=== PATIENT | male | born 1940 | race Two or more races ===

== ENCOUNTER → 2016-08-10 | Day surgery (SDC) | payer MEDICARE, OTHER ==
--- NOTE | 2016-08-09 10:44 | Pre-Procedure Note/Attestation ---
Pre-Procedure Note/Attestation Complete Prior to Procedure Planned Procedure: right Procedure Narrative: 1. CATARACT EXTRACTION WITH PHACO AND PC IOL IMPLANTATION, RIGHT EYE. 2.MALYUGIN RING INSERTION, RIGHT EYE FOR FLOPPY IRIS SYNDROME. 3.COMPLEX CATARACT , RIGHT EYE Indications for Procedure Pre-Operative Diagnosis: 1. CATARACT ,RIGHT EYE. 2. FLOPPY IRIS SYNDROME,RIGHT EYE 3. COMPLEX CATARACT , RIGHT EYE. Attestation I attest that I discussed the nature of the procedure; its benefits; risks and complications; and alternatives (and the risks and benefits of such alternatives ), prior to the procedure, with the patient (or the patient's legal dermatology sales representative). I attest that, if there was a reasonable possibility of needing a blood transfusion, the patient (or the patient's legal dermatology sales representative) was given the [facility] standardized written summary, pursuant to the Rol[place] Blood Safety Act ([place] Health and Safety Code # 1645, as amended). I attest that I re-evaluated the patient just prior to the surgery and that there has been no change in the patient's H&P, except as documented below: SHAHRZAD MORA Aug 09, 2016 10:44
[2016-08-10] VITALS (8 sets, daily range): BP systolic 146–167; BP diastolic 52–76
[~2016-08-10] VITALS: Ht 177.8 cm; Wt 62.6 kg
[~2016-08-10] MED LIST: ALLOPURINOL100 M1 ORAL; ASPIR 8181 MG ORAL; Akten 3.5% 1ml Btl ONE; Albuterol ud Inhalation HHN ONE; Albuterol ud Inhalation ONE; BRILINTA90 MG PO; BSS 15ml BTL ONE; BSS 500ml btl ONE; CALCITRIOL1 MCG/1 ML IV; CALCIUM CITRAT1 EA16 PO; CARVEDILOL6.25 MG ORAL; CYMBALTA20 MG ORAL; Dexamethasone 4mg/ml vial ONE; Diclofenac Sod 0.1% Op Soln ONE; EPINEPHrine 1mg/1ml Amp ONE; FLOMAX0.4 MG ORAL; FOLIC ACID1 MG ORAL; GABAPENTIN300 MG ORAL; GEMFIBROZIL PO; Gatifloxacin Opth Solution 0.5% ONE; INSULIN 70/30 SUBQ; ISOSORBIDE MONO20 MG PO; LEVOXYL75 MCG ORAL; LOSARTAN POTASS25 MG ORAL; Lidocaine 1% MPF 10mg/ml 5ml ONE; METOPROLOL SUCC50 MG ORAL; MONTELUKAST SOD10 MG ORAL; Midazolam 2mg/2ml Inj ONE; NEPHROVITE1 TAB ORAL; NITROGLYCERIN0.4 MG SL; NS Irrig 1000ml ONE; PENTOXIFYLLINE400 MG ORAL; PLAVIX75 MG ORAL; PROSCAR5 MG ORAL; Phenylephrine 10% Opth Soln 5ml ONE; Povidone-Iodine 5% opth solution ONE; Sodium Hyaluronate 10 mg/ml 0.85ml ONE; Sterile Water Irrig 1000ml IRRIG ONE; TAMSULOSIN HCL0.4 MG ORAL; THIAMINE HCL100 MG ORAL; Tropicamide 1% Opth Soln ONE; VITAMIN D3 1,01 EACH PO; ZETIA10 MG ORAL; [UNRECOGNIZED DRUG - OTHER]; [UNRECOGNIZED DRUG - OTHER] PO; acetaZOLAMIDE 125mg tab ORAL ONE; fentaNYL 100 mcg/2 mL IV ONE; fentaNYL 100 mcg/2 mL IV PRN
[2016-08-10] MEDS: Gatifloxacin Opth Solution 0.5% RIGHT EYE SCH ×3 (09:11→09:37)
[2016-08-10] MEDS: Tropicamide 1% Opth Soln RIGHT EYE SCH ×3 (09:11→09:37)
[2016-08-10] MEDS: Phenylephrine 10% Opth Soln 5ml RIGHT EYE SCH ×3 (09:12→09:37)
[2016-08-10] MEDS: Diclofenac Sod 0.1% Op Soln RIGHT EYE SCH ×3 (09:12→09:37)
[2016-08-10] MEDS: Akten 3.5% 1ml Btl RIGHT EYE SCH ×3 (09:12→09:37)
[2016-08-10 09:45] LABS: BASOPHILS % (AUTO) 0.7 % (0.0-2.0); LYMPHOCYTES % (AUTO) 10.6 % (20.0-45.0); MEAN CORPUSCULAR HEMOGLOBIN 29.4 PG (27.0-31.0); MEAN CORPUSCULAR HGB CONC 31.6 G/DL (32.0-36.0); MEAN CORPUSCULAR VOLUME 93 FL (80-99); MEAN PLATELET VOLUME 7.6 FL (6.5-10.1); MONOCYTES % (AUTO) 10.2 % (1.0-10.0); NEUTROPHILS % (AUTO) 74.5 % (45.0-75.0); PLATELET COUNT 453 K/UL (150-450); RED BLOOD COUNT 4.52 M/UL (4.70-6.10); RED CELL DISTRIBUTION WIDTH 15.8 % (11.6-14.8); WHITE BLOOD COUNT 12.7 K/UL (4.8-10.8)
[2016-08-10 09:56] LABS: ANION GAP 14 (5-15); CALCIUM 9.9 mg/dL (8.6-10.2); CARBON DIOXIDE 28 mEQ/L (20-30); CHLORIDE 98 mEQ/L (98-107); CREATININE 2.6 mg/dL (0.7-1.2); HEMOLYSIS 5; POTASSIUM 4.3 mEQ/L (3.4-4.9); SODIUM 140 mEQ/L (135-145)
--- NOTE | 2016-08-10 10:17 | Anethesia Preoperative Eval ---
Anesthesia Pre-op PMH/ROS General Date of Evaluation: Aug 10, 2016 Time of Evaluation: 09:40 Anesthesiologist: Manjinder ASA Score: ASA 3 Mallampati Score Class I : Soft palate, uvula, fauces, pillars visible Class II: Soft palate, uvula, fauces visible Class III: Soft palate, base of uvula visible Class IV: Only hard plate visible Mallampati Classification: Class II Surgeon: Everardo Diagnosis: R eye cataract Surgical Procedure: R eye cataract extraction with IOL Anesthesia History: none Social History: smoking - h/o Family History: no anesthesia problems Allergies: Coded Allergies: No Known Allergies (Unverified , 05/15/14) Medications: see eMAR Past Medical History Cardiovascular: Reports: CAD - stents in place, HTN Pulmonary: Reports: COPD, Denies: JUN, asthma, other Gastrointestinal/Genitourinary: Reports: ESRD - on HD last session 08/09, GERD, Denies: CRI, other Neurologic/Psychiatric: Reports: depression/anxiety, Denies: CVA, TIA, dementia, other Endocrine: Reports: DM - on insulin, Denies: hypothyroidism, other, steroids HEENT: Reports: cataract (L), cataract (R) Hematology/Immune: Reports: anemia, Denies: DVT, bleeding disorder, other Musculoskeletal/Integumentary: Reports: DJD, Denies: DDD, OA, RA, edema, other Other: other PMH Narrative: as above PSxH Narrative: R eye cataract Dialysis catheter placement Anesthesia Pre-op Phys. Exam Physician Exam Last Vital Signs Date Time Temp Pulse Resp B/P Pulse Ox O2 Delivery O2 Flow Rate FiO2 08/10/16 09:20 97.9 69 18 157/69 94 Room Air Constitutional: NAD Neurologic: CN 2-12 intact Cardiovascular: RRR Respiratory: other - some wheezing and rhonkie bilaterally Gastrointestinal: S/NT/ND Airway Exam Mallampati Score: Class II MO: limited Neck: stiff ROM: limited Teeth: missing Dentures: no lower, no upper Anesthesia Pre-op A/P Labs Hematology Test 08/10/16 09:20 White Blood Count 12.7 K/UL (4.8-10.8) H Red Blood Count 4.52 M/UL (4.70-6.10) L Hemoglobin 13.3 G/DL (14.2-18.0) L Hematocrit 42.1 % (42.0-52.0) Mean Corpuscular Volume 93 FL (80-99) Mean Corpuscular Hemoglobin 29.4 PG (27.0-31.0) Mean Corpuscular Hemoglobin Concent 31.6 G/DL (32.0-36.0) L Red Cell Distribution Width 15.8 % (11.6-14.8) H Platelet Count 453 K/UL (150-450) H Mean Platelet Volume 7.6 FL (6.5-10.1) Neutrophils (%) (Auto) 74.5 % (45.0-75.0) Lymphocytes (%) (Auto) 10.6 % (20.0-45.0) L Monocytes (%) (Auto) 10.2 % (1.0-10.0) H Eosinophils (%) (Auto) 4.0 % (0.0-3.0) H Basophils (%) (Auto) 0.7 % (0.0-2.0) Chemistry Test 08/10/16 09:20 Sodium Level 140 mEQ/L (135-145) Potassium Level 4.3 mEQ/L (3.4-4.9) Chloride Level 98 mEQ/L (98-107) Carbon Dioxide Level 28 mEQ/L (20-30) Anion Gap 14 (5-15) Blood Urea Nitrogen 40 mg/dL (7-23) H Creatinine 2.6 mg/dL (0.7-1.2) H Estimat Glomerular Filtration Rate mL/min (>60) Glucose Level 174 mg/dL (74-106) H Calcium Level 9.9 mg/dL (8.6-10.2) Accucheck 149 at admission Studies Pre-op Studies: EKG - Atrial flater Risk Assessment & Plan Assessment: ASA 3 Plan: MAC Status Change Before Surgery: No Pre-Antibiotics Drug: none BEAR VITAL M.D. Aug 10, 2016 10:17
--- NOTE | 2016-08-10 10:34 | Brief Operative Note ---
Immediate Post Operative Note Operative Note Chief Complaint: Blurry vision,right eye. Difficulty driving and reading Pre-op Diagnosis: 1. CATARACT ,RIGHT EYE. 2. FLOPPY IRIS SYNDROME,RIGHT EYE 3. COMPLEX CATARACT , RIGHT EYE. Procedure: 1- Cataract extraction with phaco and PC IOL implantation, right eye 2- Insertion Malyugin ring for the Floppy iris syndrome 3- Complex cataract extraction, right eye Post-op Diagnosis: same as pre-op Surgeon: Shahrzad Mcgee MD. Home Appliances Mechanic: None Additional Surgeons: NOne Anesthesiologist: Dr. Dunbar Anesthesia: MAC Specimen: none Complications: none Condition: stable Estimated Blood Loss: none Drains: none Implant(s) used?: Yes - Monofocal PC IOL implanted in the right eye SHAHRZAD MCGEE Aug 10, 2016 10:34
--- NOTE | 2016-08-10 10:35 | Immediate Post-Op Evaluation ---
Immediate Post-Op Evalulation Immediate Post-Op Evalulation Procedure: R eye cataract extraction with IOL Date of Evaluation: Aug 10, 2016 Time of Evaluation: 10:33 IV Fluids: 150 Blood Products: none Estimated Blood Loss: none Urinary Output: none Blood Pressure Systolic: 158 Blood Pressure Diastolic: 72 Pulse Rate: 74 Respiratory Rate: 28 O2 Sat by Pulse Oximetry: 96 Temperature (Fahrenheit): 97.4 Pain Score (1-10): 1 Nausea: No Vomiting: No Complications none Patient Status: awake, patent, none Hydration Status: adequate BEAR VITAL M.D. Aug 10, 2016 10:35
--- NOTE | 2016-08-10 11:20 | Discharge Summary ---
Discharge Summary Discharge Summary Discharge Summary DATE OF ADMISSION: 08/10/2016 DATE OF DISCHARGE: 08/10/2016 REASON FOR HOSPITALIZATION: 1- Cataract, right eye 2- Floppy iris syndrome, right eye 3- Complex cataract, right eye SURGERY PERFORMED: 1- Cataract extraction with phaco and PC IOl implantation, right eye 2-Malyugin ring insertio for the treatment of floppy iris syndrom 3- Complex cataract removal, right eye. CONDITION IN THE HOSPITAL:The patient tolerated the surgery without complications. DISCHARGE CONDITION: The patient was stable at discharge. DISCHARGE MEDICATIONS: 1. Vigamox eye drops one drop q.i.d, 2. Prednisolone one drop q.i.d, 3. Ilevro eye drop, one drop q.i.d. right eye POSTOPERATIVE ORDERS: The patient has to rest at home. No bending, No lifting, No watching Television tonight. POSTOPERATIVE FOLLOW UP: The patient will be followed in my office tomorrow morning at 9.0 o'clock. SHAHRZAD MORA Aug 10, 2016 11:20
--- NOTE | 2016-08-10 11:42 | Operative Note - PDOC ---
Operative Note Operative Note Operative Report DATE OF OPERATION: 08/10/2016 FACILITY: [facility] SURGEON: Selwny Mcgee MD. ELECTRICAL APPLIANCE SERVICER: None ANESTHESIOLOGIST: Dr. Dunbar ANESTHESIA: Monitored anesthesia care (MAC) PREOPERATIVE DIAGNOSES: 1. Cataract, right eye 2. Floppy iris, right eye. 3. Complex cataract removal, right eye POSTOPERATIVE DIAGNOSES: 1. Cataract, right eye. 2- Floppy iris syndrome. 3- Complex cataract, right eye. SURGERY PERFORMED: 1. Cataract extraction with phacoemulsification and posterior chamber intraocular lens implantation in the right eye. 2. Malyugin ring insertion for the treatment floppy iris syndrome 3. Complex cataract removal, right eye. INDICATION FOR SURGERY: The patient is an 76- year-old gentleman with history of high blood pressure, dibetes mellitus, renal insufficiency on dialysis, peripheral neuropathy,COPD,Bph , depressionanemia and arthritis. he is takingallopurinol, amlodipin,carvidelol, asa, isosorbideand insulin. He has some back pain and osteoarthritis as well. He is taking Flomax for BPH. The patient has coronary artery disease. He underwent coronary angiography with stent in his coronary artery. He does'nt smoke does'nt drink and no allergy to medications. He is complaining of blurry vision in the right eye. There is 4 nuclear sclerosis and 2 cortical cataract. The fundus shows normal optic disc, normal macula, and periphery retina is flat. To improve his vision int he left eye, the cataract has to be removed and posterior chamber intraocular lens has to be implanted. INFORMED CONSENT: The nature of the surgery, risks benefits, alternatives, and potential complications were explained all in detail to the patient. The potential complications including. But not limited to bleeding, infection, posterior capsular rupture,lens subluxation, flat anterior chamber,iris prolapse , uveitis, corneal edema, macular edema, endophthalmitis, retinal detachment, loss of vision and even loss of the eye were all explained in detail to the patient. The patient voiced understanding and accepted all the complications.The alternatives including accommodating lens, multifocal lens, toric lens, and conventional cataract surgery with limbal relaxing incision (LRI ) for treatment of astigmatism were all explained in detail to the patient who voiced understanding. The patient elected to have cataract surgery with insertion of the multifocal lens and limbal relaxing incision for astigmatism. Then, he signed the consent from,which is in the chart. DESCRIPTION OF SURGERY AND FINDINGS: Following hat, the patient was taken to the operation room in a stable condition. Lidocaine gel Akten 3.5% were applied to the conjunctiva of the right eye. Anesthesia was given by the anesthesiologist, Dr. Dunbar. After adequate anesthesia and sedation had been achieved, the right eye was prepped and draped in the usual and sterile fashion for intraocular surgery.Following that, a speculum was placed in the right eye. Following that, before the patient was taken to the operation room, the 180 and 90 meridian of the cornea was marked. In the operation room, using a corneal marker and marking pen, the steep meridian of the cornea was marked. Following that, using a roxie knife, two parallel incisions was placed on the steep meridian of the cornea to treat the patients astigmatism. Following that, using a super sharp knife, a clear corneal side port was created. Following that 1% lidocaine without preservative (MPF) was injected into the anterior chamber.Viscoelastic agent Healon was injected into the anterior chamber. Following that, a clear corneal temporal keratotomy was performed with a 2.8 mm keratome. Following that, viscoelastic agent was injected into the anterior chamber again. Following that a Malyugin ring was inserted in to the anterior chamber and fixed to the pupil. A roxie shape space created for safe phacoemolcification., Vision blue was injected under the viscoelastic agent to stain the anterior capsule. Following that, a clear fresh viscoelastic agent was injected into the anterior chamber again. Under the viscoelastic agent, an anterior capsulotomy was performed in the fashion of capsulorrhexis beautifully. Following that viscoelastic agent was removed from the anterior chamber. Following that, using a balanced salt solution hydrodissection and hydrodelineation was performed and the nucleus was freed. Following that, the viscoelastic agent was injected into the anterior chamber again to protect the endothelium of the cornea. Following that, using phacoemulsification machine inthe fashion of horizontal chop, the nucleus was removed in toto. Following that, the cortical material was removed from the capsular bag with irrigation aspiration unit and the capsular bag was polished.Following that, the capsular bag was filled with viscoelastic agent. Following that, a+22.50 diopter , ZCB00 foldable PCIOL with serial number [id number] was injected into the capsular bag. Using a Sinskey hook, the lens was manipulated within the proper position.Following that the Malyugin ring was removed, viscoelastic agent was removed from the anterior and posterior part of the lens.The anterior chamber was filled with balanced salt solution. Following that, the wound was hydrated with balanced salt solution and the wound was checked for leakage. There was no leakage. Following that, the wound was hydrated and the wound was checked for leakage. There was no leakage. Following that, Vigamox eye drops were applied to the conjunctiva of the left eye. The patient tolerated the surgery without complications. At the end of the surgery, the eye was patched with a clear sterile fenestrated shield. Following that, the patient was transferred to the recovery room. In the recovery room, 125mg Diamox was given by mouth stat. Postoperative orders and directions were given to the patient. The patient will be discharged home upon stabilization. The patient will be followed in my office tomorrow morning at 9.0 o'clock. MD MORGAN Quach JOHN Aug 10, 2016 11:42
[2016-08-11 08:04] VITALS: BP 148/74
--- NOTE | 2016-08-11 08:04 | 48 Hour Post Anesthesia Eval ---
Post Anesthesia Evaluation Procedure: R eye cataract extraction with IOL Date of Evaluation: Aug 10, 2016 Time of Evaluation: 11:40 Blood Pressure Systolic: 148 0: 74 Pulse Rate: 64 Respiratory Rate: 24 Temperature (Fahrenheit): 97.6 O2 Sat by Pulse Oximetry: 96 Airway: patent Nausea: No Vomiting: No Pain Intensity: 1 Hydration Status: adequate Cardiopulmonary Status: stable Mental Status/LOC: patient returned to baseline Follow-up Care/Observations: n/a Post-Anesthesia Complications: none Follow-up care needed: ready to discharge BEAR VITAL M.D. Aug 11, 2016 08:04
--- NOTE | 2016-08-11 15:37 | Pre-op HX & Phy Repo 2 SIG ---
DATE OF ADMISSION: 08/10/2016 PRESURGICAL INTERNAL MEDICINE HISTORY AND PHYSICAL DATE OF EVALUATION: 08/10/2016 REASON FOR EVALUATION: I was asked by Dr. Selwyn Mcgee to see this 75-year-old male who was brought in for elective surgery on the right eye. The patient has a cataract right eye. Please see full History and Physical by hospice clinical marketer, Dr. Selwyn Mcgee. The patient was evaluated. Chart was reviewed. The patient is complaining of progressive vision loss of the right eye due to cataract. The patient's past medical history and review of systems obtained from the chart, at the bedside and Dr. Mcgee. The patient is a Farsi-speaking male, in no acute distress. PAST MEDICAL HISTORY: Remarkable for insulin-dependent diabetes mellitus, end-stage renal disease. The patient is on hemodialysis, last done 08/09/2016. The patient has a history of hypertension, benign prostatic hypertrophy and coronary artery disease. No history of heart attack or stroke. The patient has hypoparathyroidism secondary to renal insufficiency. The patient has a hypothyroidism. PAST SURGICAL HISTORY: Cataract, left eye one year ago and chest subclavian IV access for dialysis on the right side. MEDICATIONS: Current medications include Humalog 70/30, 10 units in the morning and 5 units at bedtime, allopurinol 100 mg daily, levothyroxine, baby aspirin, calcitonin, calcium supplement, Coreg 6.25 mg three times a day, Synthroid, gabapentin, Brilinta 90 mg needed be , vitamin B complex, isosorbide 20 mg daily, Flomax, and Proscar. ALLERGIES: Not known. FAMILY HISTORY: Not known. PHYSICAL EXAMINATION: GENERAL: The patient is awake, alert, Farsi speaking male in no acute distress. VITAL SIGNS: Blood pressure 157/65, temperature 97.9 degrees, pulse 69 and regular, and O2 saturation 99%. SKIN: Pale, dry, and clear. LYMPHATICS: Lymph nodes not enlarged. HEENT: Head, normocephalic. Ears, clear. Eyes, full description per Dr. Selwyn Mcgee. Mouth, clear and moist. Nose, clear. No discharge. NECK: No jugular vein distention. Carotids are 2+. Trachea midline. CHEST: Right upper access for dialysis. The patient dialyzed yesterday, 08/09/2016. LUNGS: Clear. No rales or rhonchi. HEART: Sinus rhythm. Atrial flutter. AV block on the EKG. ABDOMEN: Soft. No palpable mass. No rebound. EXTREMITIES: No edema. No calf tenderness. No deformity. GENITOURINARY TRACT: Normal for gender. No dysuria and anuria. History of benign prostatic hypertrophy. LABORATORY AND DIAGNOSTIC DATA: Electrocardiogram, atrial flutter, AV block,__ MS, old, rate 69. Laboratory findings, blood sugar of 149. White blood cells 12.7, and hemoglobin 13.3. Chemistries, sodium 140, potassium 4.3, BUN 40, creatinine 2.6, blood sugar 174, and calcium 9.9. IMPRESSION: 1. Cataract, right eye. 2. Insulin-dependent diabetes mellitus. 3. End-stage renal disease, on dialysis, last 08/09/2016. 4. Hypertension. 5. Hypothyroidism. 6. Hypoparathyroidism. 7. Benign prostatic hypertrophy. 8. Atrial flutter. 9. History of old myocardial infarction. 10. Depression. The patient is on Cymbalta. PLAN: Cataract extraction right eye with intraocular lens implant per Dr. Selwyn Mcgee. CONCLUSION: The patient has multiple medical problem including hypertension, diabetes on dialysis, and end-stage renal disease. The patient has history of atrial flutter and old myocardial infarction also hypothyroidism, hypoparathyroidism. The patient's vital signs stable. Blood sugar fairly controlled. The patient dialyzed yesterday. Potassium was normal limits. The patient's condition optimized for surgery. Thank you very much, Dr. Mcgee, for privilege to participate presurgical care of this interesting patient. Roderick Petersen M.D. DR: Dimitri JOB#: [id number] CC:
== END | disposition home or self-care (01) ==
LOC: SUR 08:48
DX: H25.11 Age-related nuclear cataract, right eye (principal); H25.011 Cortical age-related cataract, right eye; H21.81 Floppy iris syndrome; E11.9 Type 2 diabetes mellitus without complications; Z79.4 Long term (current) use of insulin; I12.0 Hypertensive chronic kidney disease with stage 5 chronic kidney disease or end stage renal disease; N18.6 End stage renal disease; Z99.2 Dependence on renal dialysis; I25.10 Atherosclerotic heart disease of native coronary artery without angina pectoris; E03.9 Hypothyroidism, unspecified; E20.8 Other hypoparathyroidism; I48.92 Unspecified atrial flutter; F32.9 Major depressive disorder, single episode, unspecified; F41.9 Anxiety disorder, unspecified; J44.9 Chronic obstructive pulmonary disease, unspecified; M19.90 Unspecified osteoarthritis, unspecified site; K21.9 Gastro-esophageal reflux disease without esophagitis; G62.9 Polyneuropathy, unspecified; I25.2 Old myocardial infarction; Z79.82 Long term (current) use of aspirin
CPT/HCPCS: 36415; 66982; 80048; 82962; 85025; 93005; J0171; J1100; J2250; J3010; V2632; 94003; 94150